=== PATIENT | female | born 1950 | race Caucasian/White ===

== ENCOUNTER 2018-04-30 12:49 | Outpatient (CLI) | payer MEDICARE, BC | END 2018-04-30 12:50 | disposition home or self-care (01) | LOC: BICCT 12:49 | PROVIDERS: ATTEND Thoracic Surgery (Cardiothoracic Vascular Surgery) | DX: I71.4 Abdominal aortic aneurysm, without rupture (principal); K80.20 Calculus of gallbladder without cholecystitis without obstruction | CPT/HCPCS: 74176 ==

== ENCOUNTER 2019-03-15 12:02 | Outpatient (CLI) | payer MEDICARE, BC ==
--- NOTE | 2019-03-15 14:04 | MMO ---
Bilateral MAMMO Bilat Screen [facility]. CLINICAL HISTORY: Patient is 69 years old and is seen for screening. The patient has no family history of breast cancer. The patient has no personal history of cancer. VIEWS: The views performed were: bilateral craniocaudal with tomosynthesis and bilateral mediolateral oblique with tomosynthesis. FILMS COMPARED: The present examination has been compared to prior imaging studies performed at [facility] on 08/07/2015, 08/11/2015, 02/09/2016 and 08/16/2016. MAMMOGRAM FINDINGS: There are scattered fibroglandular densities. There are no suspicious masses, calcifications or areas of architectural distortion. There are benign appearing calcifications in both breasts. There are no suspicious masses, suspicious calcifications, or new areas of architectural distortion. IMPRESSION: THERE IS NO MAMMOGRAPHIC EVIDENCE OF MALIGNANCY. A ROUTINE FOLLOW-UP MAMMOGRAM IN 1 YEAR IS RECOMMENDED. THE RESULTS OF THIS EXAM WERE SENT TO THE PATIENT. ACR BI-RADS Category 2 - Benign finding MAMMOGRAPHY NOTE: 1. A negative mammogram report should not delay a biopsy if a dominant of clinically suspicious mass is present. 2. Approximately 10% to 15% of breast cancers are not detected by mammography. 3. Adenosis and dense breasts may obscure an underlying neoplasm. Reported by: LATONIA SPIVEY MD Electonically Signed: [id number]
== END 2019-03-15 12:03 | disposition home or self-care (01) ==
LOC: BICMAMMO 12:02
PROVIDERS: ATTEND Physician Assistant
DX: Z12.31 Encounter for screening mammogram for malignant neoplasm of breast (principal)
CPT/HCPCS: 77063; 77067

== ENCOUNTER 2020-03-16 11:41 | Outpatient (CLI) | payer MEDICARE, BC ==
--- NOTE | 2020-03-16 13:46 | MMO ---
Bilateral MAMMO Bilat Screen [facility]. CLINICAL HISTORY: Patient is 70 years old and is seen for screening. The patient has no family history of breast cancer. The patient has no personal history of cancer. VIEWS: The views performed were: bilateral craniocaudal with tomosynthesis and bilateral mediolateral oblique with tomosynthesis. FILMS COMPARED: The present examination has been compared to prior imaging studies performed at [facility] on 08/11/2015, 02/09/2016, 08/16/2016 and 03/15/2019. This study has been interpreted with the assistance of computer-aided detection. MAMMOGRAM FINDINGS: There are scattered fibroglandular densities. Benign calcifications are noted bilaterally. There are no suspicious masses, suspicious calcifications, or new areas of architectural distortion. IMPRESSION: THERE IS NO MAMMOGRAPHIC EVIDENCE OF MALIGNANCY. A ROUTINE FOLLOW-UP MAMMOGRAM IN 1 YEAR IS RECOMMENDED. THE RESULTS OF THIS EXAM WERE SENT TO THE PATIENT. ACR BI-RADS Category 2 - Benign finding MAMMOGRAPHY NOTE: 1. A negative mammogram report should not delay a biopsy if a dominant of clinically suspicious mass is present. 2. Approximately 10% to 15% of breast cancers are not detected by mammography. 3. Adenosis and dense breasts may obscure an underlying neoplasm. Reported by: NOMI SOLIZ MD Electonically Signed: [id number]
== END 2020-03-16 11:42 | disposition home or self-care (01) ==
LOC: BICMAMMO 11:41
PROVIDERS: ATTEND Physician Assistant
DX: Z12.31 Encounter for screening mammogram for malignant neoplasm of breast (principal)
CPT/HCPCS: 77063; 77067

== ENCOUNTER 2020-08-19 07:54 | Outpatient (CLI) | payer MEDICARE, BC ==
[2020-08-19] MEDS ORDERED: Iopamidol-370 76% 500 ML 1 ML ONE (09:09)
--- NOTE | 2020-08-19 11:23 | CT ---
CT ABDOMEN AND PELVIS WITH AND WITHOUT IV CONTRAST: Date: 08/19/2020 HISTORY: Gross hematuria. FINDINGS: Comparison made with the noncontrasted exam of 04/16/2020. The lung bases are unremarkable. A calcified gallstone is again noted. The spleen, pancreas, and adre nal glands are normal. There is a tiny low density lesion in the posterior aspect of the right lobe o f the liver, too small to characterize. No calculi seen in the kidneys, ureters, or urinary bladder. No hydroureteronephrosis is seen on eith er side. Postcontrast images demonstrate a couple of tiny low density lesions in the right renal ranjit ex, too small to characterize. No enhancing renal masses are noted. There is normal tracer excretion into the ureters and urinary bladder. No free air, free fluid, or lymphadenopathy seen in the abdomen or pelvis. There are vascular calcifi cations with a stable 3.2 cm infrarenal abdominal aortic aneurysm. There are degenerative changes in the spine. The small bowel loops are not abnormally dilated. A normal appearing appendix is present. The patient is post hysterectomy. There is colonic diverticulosis without diverticulitis. IMPRESSION: 1. No CT evidence of urinary tract calculi/obstruction or suspicious renal mass. 2. Cholelithiasis. 3. Stable 3.2 cm abdominal aortic aneurysm. 4. Colonic diverticulosis. POS: AH
== END 2020-08-19 07:55 | disposition home or self-care (01) ==
LOC: BICCT 07:54
PROVIDERS: ATTEND Urology
DX: R31.0 Gross hematuria (principal); K57.30 Diverticulosis of large intestine without perforation or abscess without bleeding; K80.20 Calculus of gallbladder without cholecystitis without obstruction; I71.4 Abdominal aortic aneurysm, without rupture
CPT/HCPCS: 74178; 82565; Q9967